=== PATIENT | female | born 1985 | race Caucasian/White ===

== ENCOUNTER → 2016-11-12 | Outpatient (CLI) | payer OTHER ==
[2016-11-12 10:28] LABS: BASO % 0.5 %; BASO ABS # 0.02 K/uL (0-0.2); COMPLETE YES; EOS % 1.4 %; HEMATOCRIT 39.9 % (37-47); LYMPH % 47.2 %; LYMPH ABS # 1.96 K/uL (1.2-3.4); MEAN CELL VOLUME 90.9 fL (80-100); MEAN CORPUSCULAR HEMOGLOBIN 31.4 pg (25-34); MEAN CORPUSCULAR HGB CONC 34.6 g/dl (32-36); MEAN PLATELET VOLUME 9.7 fL (7.4-10.4); MONO % 4.8 %; NEUT % 46.1 %; PLATELET COUNT 242 K/uL (130-400); RED BLOOD COUNT 4.39 M/uL (4.2-5.4); WHITE BLOOD COUNT 4.15 K/uL (4.8-10.8)
[2016-11-12 10:51] LABS: ALT/SGPT 21 U/L (12-78); BLOOD UREA NITROGEN 10 mg/dl (7-18); BUN/CREATININE RATIO 12.4 (10-20); CALCIUM 8.4 mg/dl (8.5-10.1); CARBON DIOXIDE 26 mmol/L (21-32); CHLORIDE 113 mmol/L (98-107); CHOLESTEROL 134 mg/dl (0-200); CREATININE 0.77 mg/dl (0.60-1.20); GLUCOSE 71 mg/dl (70-99); POTASSIUM 3.8 mmol/L (3.5-5.1); SODIUM 145 mmol/L (136-145)
[2016-11-12 10:57] LABS: ALB/GLOB RATIO 1.2 (0.9-2); ALKALINE PHOSPHATASE 48 U/L (45-117); AST/SGOT 11 U/L (15-37); C-REACTIVE PROTEIN 0.75 mg/dl (0-0.29); CHOLESTEROL/HDL RATIO 1.9; HDL CHOLESTEROL 70 mg/dl; LDL CHOLESTEROL CALCULATED 50 mg/dl; RHEUMATOID FACTOR < 10.0 U/mL (0-15); TRIGLYCERIDES 70 mg/dl (0-150); URIC ACID 3.6 mg/dl (2.6-7.2); VERY LOW DENSITY LIPOPROT CALC 14 mg/dl
== END | disposition home or self-care (01) ==
LOC: C.LAB 09:48
PROVIDERS: ATTEND Nurse Practitioner Adult Health
DX: Z00.00 Encounter for general adult medical examination without abnormal findings (principal); I73.00 Raynaud's syndrome without gangrene; M79.674 Pain in right toe(s)

== ENCOUNTER → 2016-12-10 | Outpatient (CLI) | payer OTHER | END | disposition home or self-care (01) | LOC: C.PAPS 14:30 | PROVIDERS: ATTEND Physician Assistant | DX: Z12.4 Encounter for screening for malignant neoplasm of cervix (principal) ==

== ENCOUNTER 2020-12-02 08:51 | Inpatient (IN) ==
[2020-12-02] MEDS ORDERED: NIFEdipine 10 MG CAP PO STA (09:30)
[2020-12-02] MEDS ORDERED: MAG SULFATE 4GM BOLUS FROM BAG IV ONE (09:30)
[2020-12-02] MEDS ORDERED: LACTATED RINGER'S 1,000 ML IV SCH ×2 (09:30→21:30)
[2020-12-02] MEDS ORDERED: LACTATED RINGER'S 1,000 ML IV PRN (09:32)
[2020-12-02] MEDS ORDERED: OXYTOCIN 30 UNITS/500 ML BAG IV PRN ×3 (09:32→19:03)
[2020-12-02 10:14] LABS: Alanine Aminotransferase 264 U/L (12-78); Albumin Level 2.7 gm/dl (3.4-5.0); Aspartate Aminotransferase 267 U/L (15-37); BUN Creatinine Ratio 12.8 (10-20); Blood Urea Nitrogen 7 mg/dl (7-18); Calcium 8.5 mg/dl (8.5-10.1); Carbon Dioxide 21 mmol/L (21-32); Chloride 110 mmol/L (98-107); Est GFR (Non-African American) 121.7 ml/min; Glucose 86 mg/dl (70-99); Potassium 4.2 mmol/L (3.5-5.1); Sodium 140 mmol/L (136-145)
[2020-12-02 10:17] LABS: Albumin Globulin Ratio 0.8 (0.9-2); Alkaline Phosphatase 182 U/L (45-117); Bilirubin,Total 0.8 mg/dl (0.2-1); Globulin 3.6 gm/dl (2.5-4.0); Total Protein 6.3 gm/dl (6.4-8.2)
[2020-12-02] MEDS: MAGNESIUM SULFATE / WTR 40 GM/1,000 ML BAG IV SCH (10:34)
[2020-12-02] MEDS ORDERED: LIDOCAINE 2% JELLY 5 ML TUBE ONE ×2 (10:50→17:11)
[2020-12-02 11:04] LABS: Hematocrit (blood only) 37.5 % (37-47); Hemoglobin 13.5 g/dL (12.0-16.0); Mean Corpuscular Hemoglobin 32.5 pg (25-34); Mean Corpuscular Volume 90.4 fL (80-100); Mean Platelet Volume 9.6 fL (7.4-10.4); Platelet Count 72 K/uL (130-400); RDW Coefficient of Variation 13.1 % (11.5-14.5); RDW Standard Deviation 42.9 fL (36.4-46.3); Red Blood Count 4.15 M/uL (4.2-5.4); White Blood Count 9.96 K/uL (4.8-10.8)
[2020-12-02 11:05] LABS: Basophils # (auto) 0.01 K/uL (0-0.2); Basophils % (auto) 0.1 %; Eosinophils # (auto) 0.01 K/uL (0-0.5); Eosinophils % (auto) 0.1 %; Immature Granulocytes # (auto) 0.06 K/uL (0.00-0.02); Immature Granulocytes % (auto) 0.6 %; Lymphocytes # (auto) 0.97 K/uL (1.2-3.4); Lymphocytes % (auto) 9.7 %; Monocytes # (auto) 0.52 K/uL (0.11-0.59); Monocytes % (auto) 5.2 %; Neutrophils # (auto) 8.39 K/uL (1.4-6.5); Neutrophils % (auto) 84.3 %; Platelet Estimate Decreased (Normal)
--- NOTE | 2020-12-02 11:27 | Progress Note ---
Date of Service December 02, 2020 Assessment & Plan Admission and Anticipated Discharge Date Admission Date: December 02, 2020 Subjective Pt is a 35yo G1 @36= weeks Preeclampsia FHR; CAT1 Ctx .minimal VE 1/50% /post EFW by diamond; 6-7lbs Admit discussed induction of labor with pt and spouse Both agree with plan Nifedipine for BP Magnesium sulphate started BMTX series started Antibx for GBS ordered Zuñiga Bulb placed with 30 cc saline placed with out difficulty Results & Data ([facility]) Vital Signs (Past 12 Hours) Vital Signs Pulse BP 12/02/20 11:17 112 H 139/101 H 12/02/20 11:07 107 H 135/93 12/02/20 10:47 114 H 136/87 12/02/20 10:37 125 H 126/87 12/02/20 10:27 130 H 134/86 12/02/20 10:17 102 H 163/102 H 12/02/20 10:08 93 H 170/115 H 12/02/20 09:57 100 H 161/106 H 12/02/20 09:53 96 H 162/105 H 12/02/20 09:27 100 H 159/111 H 12/02/20 09:17 91 H 168/113 H
[2020-12-02] MEDS ORDERED: PENICILLIN G POTASSIUM 6 MU in DEXTROSE 5% 250 ML IV ONE (11:45)
[2020-12-02] MEDS ORDERED: PENICILLIN G POTASSIUM 3 MU in DEXTROSE 5% 100 ML IV PRN (12:00)
[2020-12-02] MEDS: LABETALOL HCL 200 MG TAB PO SCH ×2 (13:07→21:10)
--- NOTE | 2020-12-02 13:49 | Anesthesiology Consultation ---
Date of Service December 02, 2020 Assessment & Plan Chart Review Chart Review: Acceptable Risk for Surgery and Patient NOT seen in Pre Admission Testing Consults Requested none ASA ASA3 Proposed Anesthesia Anesthesia Type: General History Allergies Allergy/AdvReac Type Severity Reaction Status Date / Time No Known Drug Allergies Allergy Verified 11/05/20 13:49 Medications Home Medications Medication Instructions Recorded Confirmed Last Taken prenat.vits,ave,oym-seta-rhkxp 1 tab PO DAILY 05/12/20 12/02/20 12/01/20 20:00 sertraline 100 mg tablet 200 mg PO DAILY #60 tab 07/24/20 12/02/20 11/30/20 20:00 bupropion HCl 100 mg tablet 150 mg PO BID #90 tab 11/06/20 12/02/20 11/30/20 20:00 Active Medications Generic Name Dose Route Start Last Admin Trade Name Freq PRN Reason Stop Dose Admin Magnesium Sulfate 40 gm in 1,000 mls @ 50 mls/hr 12/02/20 09:30 12/02/20 10:34 Magnesium Sulfate / Wtr IV 01/01/21 09:29 50 mls/hr .Q20H NORMA Administration Labetalol HCl 200 mg 12/02/20 12:40 12/02/20 13:07 Labetalol Hcl 200 Mg Tab PO 01/01/21 12:39 200 mg BID NORMA Administration Past Medical History Medical History Compulsive skin picking History of chicken pox 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 Leukopenia Raynaud phenomenon Exercise / Class Metabolic Activity III < 4 Walking/Shop/Light housework Past Family History Family History Mother COPD (chronic obstructive pulmonary disease) Father Afib Hypertension Brother Crohn's disease Denies family history of Colon cancer Ovarian cancer Prostate cancer Myocardial infarction Breast cancer Past Surgical History Surgical History No significant past surgical history Past Anesthesia History No Hx of Anesthesia Complications and No Family Hx of Anesthesia Complications History of PONV No Hx of PONV and No Hx of Motion Sickness Social History Smoking Status: Never smoker Hx Alcohol Use: Yes Alcohol type: wine Hx Substance Use: No Physical Exam Vital Signs Last Vital Signs Pulse 84 06/08/21 13:37 BP 142/103 H 12/02/20 13:37 Testing Laboratory Results 12/02/20 09:47 12/02/20 09:47
[2020-12-02] MEDS ORDERED: BUTORPHANOL TARTRATE 1 MG/ML VIAL IV PRN (14:27)
--- NOTE | 2020-12-02 14:35 | Progress Note ---
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 Plan since pt is processing well,in the presents of low platelets, we will continue to proceed and hope for vaginal delivery will continue to monitor labs Results & Data ([facility]) Vital Signs (Past 12 Hours) Vital Signs Temp Pulse Resp BP 12/02/20 14:07 88 132/87 12/02/20 13:58 90 128/89 12/02/20 13:47 90 140/96 12/02/20 13:37 84 142/103 H 12/02/20 13:16 37.0 C 20 12/02/20 12:58 99 H 172/108 H 12/02/20 12:47 97 H 149/112 H 12/02/20 12:37 90 163/107 H 12/02/20 12:28 98 H 166/110 H 12/02/20 12:17 93 H 161/105 H 12/02/20 12:08 93 H 156/103 H 12/02/20 11:57 100 H 139/88 12/02/20 11:48 101 H 139/89 12/02/20 11:38 105 H 157/108 H 12/02/20 11:27 111 H 156/98 H 12/02/20 11:17 112 H 139/101 H 12/02/20 11:07 107 H 135/93 12/02/20 10:47 114 H 136/87 12/02/20 10:37 125 H 126/87 12/02/20 10:27 130 H 134/86 12/02/20 10:17 102 H 163/102 H 12/02/20 10:08 93 H 170/115 H 12/02/20 09:57 100 H 161/106 H 12/02/20 09:53 96 H 162/105 H 12/02/20 09:27 100 H 159/111 H 12/02/20 09:17 91 H 168/113 H
[2020-12-02] MEDS: BUTORPHANOL TARTRATE 1 MG/ML VIAL ONE ×2 (14:38→18:23)
[2020-12-02 16:04] LABS: Hematocrit (blood only) 38.1 % (37-47); Hemoglobin 13.7 g/dL (12.0-16.0); Mean Corpuscular Hemoglobin 32.5 pg (25-34); Mean Corpuscular Volume 90.5 fL (80-100); RDW Coefficient of Variation 13.2 % (11.5-14.5); RDW Standard Deviation 43.1 fL (36.4-46.3); Red Blood Count 4.21 M/uL (4.2-5.4); White Blood Count 12.08 K/uL (4.8-10.8)
[2020-12-02 16:16] LABS: Mean Platelet Volume 10.2 fL (7.4-10.4); Platelet Count 76 K/uL (130-400)
[2020-12-02] MEDS ORDERED: LIDOCAINE 1% LOCAL 20 ML VIAL ONE (16:37)
[2020-12-02 16:41] LABS: Platelet Estimate Decreased (Normal)
[2020-12-02] MEDS ORDERED: CARBOPROST TROMETHAMINE 250 MCG/ML AMPUL ONE (16:43)
--- NOTE | 2020-12-02 17:03 | Delivery Summary ---
Vaginal Delivery Summary Date of Service December 02, 2020 Vaginal Delivery Summary and 1st Degree LAC Vaginal Delivery Summary: Pre-delivery diagnoses: 35yo @ 36 3/7, preeclampsia with severe features Post-delivery diagnoses: same Procedure: spontaneous vaginal delivery Surgeon: Dahlia Diaz DO Complications: none Findings: Viable male . Apgars: 8/9. Weight pending, please see nursery records. Estimated blood loss: 200ml Description of delivery: Patient's cryptographer was in the middle of a section of another patient, and this patient progressed quickly to complete cervical dilation and actively pushing. I was asked to step into the room for delivery by nursing staff in his absence. The patient progressed to complete without anesthesia. She then began to push. At the time I walked into the room, patient was and unable to overcome strong urge to push. She spontaneously vaginally delivered a viable from the cephalic presentation. The head delivered in KIARA position. The anterior shoulder delivered, followed by the posterior shoulder, followed by the body. No nuchal. The baby was placed on mother's abdomen and a spontaneous cry was heard. The cord was doubly clamped and cut. A segment was retained for cord gases. Cord blood was obtained. The placenta was delivered spontaneously intact with a 3- vessel cord. The uterus and vagina were swept of clots and debris. IV pitocin was given. The uterus became firm. Because of her low platelets, one dose of hemabate was given to further achieve hemostasis. The cervix, vagina, and perineum were inspected and a small first degree perineal laceration was noted. This was hemostatic and patient preferred to not have this repaired with suture. Excellent hemostasis was observed. The mother and baby are recovering in stable and good condition in the room. Sponge and instrument counts were correct x 2. Dahlia Diaz DO [facility] [place] Vaginal Delivery Charge Delivery Type Details: and 1st Degree LAC
[2020-12-02 18:29] LABS: Hematocrit (blood only) 36.5 % (37-47); Hemoglobin 13.1 g/dL (12.0-16.0); Mean Corpuscular Hemoglobin 32.5 pg (25-34); Mean Corpuscular Hgb Conc 35.9 g/dL (32-36); Mean Corpuscular Volume 90.6 fL (80-100); RDW Coefficient of Variation 13.3 % (11.5-14.5); RDW Standard Deviation 43.3 fL (36.4-46.3); Red Blood Count 4.03 M/uL (4.2-5.4); White Blood Count 10.58 K/uL (4.8-10.8)
[2020-12-02 18:41] LABS: Mean Platelet Volume 10.2 fL (7.4-10.4); Platelet Count 58 K/uL (130-400)
[2020-12-02 18:47] LABS: Albumin Level 2.8 gm/dl (3.4-5.0); BUN Creatinine Ratio 17.2 (10-20); Calcium 7.4 mg/dl (8.5-10.1); Creatinine Clr Calc Pharmacy 131.9 ml/min; Est GFR (African American) 141.8 ml/min; Est GFR (Non-African American) 122.4 ml/min; Potassium 3.8 mmol/L (3.5-5.1)
[2020-12-02 18:50] LABS: Albumin Globulin Ratio 0.8 (0.9-2); Bilirubin,Total 0.8 mg/dl (0.2-1); Globulin 3.6 gm/dl (2.5-4.0); Total Protein 6.4 gm/dl (6.4-8.2)
[2020-12-02] MEDS ORDERED: HYDROCORTISONE ACETATE 25 MG SUPP PR PRN (19:03)
[2020-12-02] MEDS ORDERED: bisacodyL 10 MG SUPP PR PRN (19:03)
[2020-12-02] MEDS ORDERED: BENZOCAINE 20% AER SPR 82.5 GM CAN EXT PRN (19:03)
[2020-12-02] MEDS ORDERED: SUPERCREAM 0.870% 15 GM JAR EXT PRN (19:03)
[2020-12-02] MEDS ORDERED: oxyCODONE/ACETAMINOPHEN 5mg/325mg TAB PO PRN (19:03)
[2020-12-02] MEDS ORDERED: ACETAMINOPHEN 325 MG TAB PO PRN (19:03)
[2020-12-02] MEDS ORDERED: IBUPROFEN 600 MG TAB PO PRN (19:03)
[2020-12-02] MEDS ORDERED: DIPHTHERIA/TETANUS/PERTUSSIS 0.5 ML SYR/VIAL IM ONE (19:03)
[2020-12-02] MEDS ORDERED: CARBOPROST TROMETHAMINE 250 MCG/ML AMPUL IM ONE (19:03)
[2020-12-02 19:19] LABS: Cord Venous Blood PCO2 49 mmHg (30.4-57.2); Cord Venous Blood PO2 29 mmHg (14.1-43.3)
[2020-12-02 19:20] LABS: Base Excess Cord Venous Blood -3.4 mEq/L (-7.7-1.9); Cord Venous Blood HCO3 24 mmol/L (18.4-26.8)
[2020-12-02] MEDS: DOCUSATE SODIUM 100 MG CAP PO SCH (21:08)
[2020-12-02] MEDS: buPROPion HCl 75 MG TABLET PO SCH ×2 (21:10→21:28)
[2020-12-03 01:33] LABS: Hematocrit (blood only) 35.3 % (37-47); Hemoglobin 12.4 g/dL (12.0-16.0); Mean Corpuscular Hemoglobin 31.6 pg (25-34); Mean Corpuscular Volume 89.8 fL (80-100); RDW Coefficient of Variation 13.4 % (11.5-14.5); RDW Standard Deviation 43.3 fL (36.4-46.3); Red Blood Count 3.93 M/uL (4.2-5.4)
[2020-12-03 02:06] LABS: Mean Corpuscular Hgb Conc 35.1 g/dL (32-36); Mean Platelet Volume 10.1 fL (7.4-10.4); Platelet Count 73 K/uL (130-400)
[2020-12-03] MEDS: MAGNESIUM SULFATE / WTR 40 GM/1,000 ML BAG IV SCH (04:02)
[2020-12-03 06:20] LABS: Hematocrit (blood only) 34.5 % (37-47); Hemoglobin 12.3 g/dL (12.0-16.0); Mean Corpuscular Hemoglobin 31.9 pg (25-34); Mean Corpuscular Hgb Conc 35.7 g/dL (32-36); Mean Corpuscular Volume 89.6 fL (80-100); RDW Coefficient of Variation 13.4 % (11.5-14.5); RDW Standard Deviation 43.2 fL (36.4-46.3); Red Blood Count 3.85 M/uL (4.2-5.4); White Blood Count 12.16 K/uL (4.8-10.8)
[2020-12-03 06:24] LABS: Mean Platelet Volume 10.5 fL (7.4-10.4); Platelet Count 75 K/uL (130-400)
[2020-12-03] MEDS: LABETALOL HCL 200 MG TAB PO SCH ×2 (09:00→20:50)
[2020-12-03] MEDS ORDERED: SERTRALINE HCL 100 MG TABLET PO SCH ×2 (09:00→21:00)
[2020-12-03] MEDS: DOCUSATE SODIUM 100 MG CAP PO SCH ×2 (09:04→20:49)
[2020-12-03] MEDS: PRENATAL VITAMIN 1 TAB PO SCH (09:04)
[2020-12-03] MEDS: buPROPion HCl 75 MG TABLET PO SCH ×2 (09:05→20:50)
--- NOTE | 2020-12-03 09:23 | Obstetrical Progress Note ---
Date of Service December 03, 2020 Subjective Voiding: bashir catheter in place Passing Gas:: Yes Diet Tolerance:: regular diet Lochia:: Small Feeding Type:: breast feeding no headaches or blurred vision or visual changes no edema neg Supa's Urine output good Will hold Labetalol due to BP 130/88 plan repeat LFT's and Mag level Will d/c Mag at 24 hours if stable Results & Data ([facility]) Vital Signs (Past 12 Hours) Vital Signs Temp Pulse Resp BP Pulse Ox 12/03/20 09:17 92 H 95 12/03/20 09:12 94 H 97 12/03/20 09:07 93 H 95 12/03/20 09:02 94 H 94 12/03/20 09:00 90 130/88 12/03/20 08:57 94 H 95 12/03/20 08:52 92 H 95 12/03/20 08:47 89 95 12/03/20 08:42 89 95 12/03/20 08:37 93 H 96 12/03/20 08:32 88 96 12/03/20 08:30 18 12/03/20 08:27 90 95 12/03/20 08:22 92 H 95 12/03/20 08:17 93 H 95 12/03/20 08:12 91 H 95 12/03/20 08:07 92 H 97 12/03/20 08:02 90 95 12/03/20 08:00 90 127/86 12/03/20 07:57 90 95 12/03/20 07:52 88 95 12/03/20 07:47 92 H 95 12/03/20 07:42 88 95 12/03/20 07:37 88 94 12/03/20 07:32 88 95 12/03/20 07:30 36.7 C 18 12/03/20 07:27 90 93 12/03/20 07:22 87 96 12/03/20 07:17 89 96 12/03/20 07:12 90 97 12/03/20 07:07 82 96 12/03/20 07:02 83 97 12/03/20 07:00 81 18 139/95 12/03/20 06:57 84 97 12/03/20 06:52 81 97 12/03/20 06:47 86 97 12/03/20 06:42 84 97 12/03/20 06:37 85 97 12/03/20 06:32 84 98 12/03/20 06:27 82 97 12/03/20 06:22 81 96 12/03/20 06:17 85 97 12/03/20 06:12 83 96 12/03/20 06:07 81 97 12/03/20 06:02 81 96 12/03/20 06:00 83 18 138/95 12/03/20 05:57 86 97 12/03/20 05:52 85 97 12/03/20 05:47 91 H 95 12/03/20 05:42 90 95 12/03/20 05:37 92 H 95 12/03/20 05:32 91 H 96 12/03/20 05:27 89 95 12/03/20 05:22 89 95 12/03/20 05:17 90 95 12/03/20 05:12 91 H 95 12/03/20 05:07 89 95 12/03/20 05:02 90 95 12/03/20 05:00 89 16 129/87 12/03/20 04:57 89 95 12/03/20 04:52 90 96 12/03/20 04:47 89 95 12/03/20 04:42 89 96 12/03/20 04:37 88 96 12/03/20 04:32 88 94 12/03/20 04:27 87 95 12/03/20 04:22 85 95 12/03/20 04:17 84 96 12/03/20 04:12 84 96 12/03/20 04:07 90 98 12/03/20 04:02 88 96 12/03/20 04:00 36.9 C 88 16 122/90 12/03/20 03:57 94 H 95 12/03/20 03:52 91 H 95 12/03/20 03:47 91 H 95 12/03/20 03:42 90 95 12/03/20 03:37 90 95 12/03/20 03:32 91 H 95 12/03/20 03:27 90 96 12/03/20 03:22 90 96 12/03/20 03:20 16 12/03/20 03:17 90 96 12/03/20 03:12 89 96 12/03/20 03:07 88 96 12/03/20 03:02 86 96 12/03/20 03:00 85 127/89 12/03/20 02:57 86 96 12/03/20 02:52 86 96 12/03/20 02:47 82 97 12/03/20 02:42 83 96 12/03/20 02:37 91 H 97 12/03/20 02:32 96 H 96 12/03/20 02:30 18 12/03/20 02:27 95 H 96 12/03/20 02:22 95 H 94 12/03/20 02:17 96 H 95 12/03/20 02:12 96 H 96 12/03/20 02:07 95 H 97 12/03/20 02:02 97 H 97 12/03/20 01:58 91 H 138/89 12/03/20 01:57 90 97 12/03/20 01:52 89 96 12/03/20 01:47 88 96 12/03/20 01:42 87 96 12/03/20 01:37 86 96 12/03/20 01:32 84 97 12/03/20 01:27 83 97 12/03/20 01:22 83 97 12/03/20 01:17 82 98 12/03/20 01:15 18 12/03/20 01:12 86 99 12/03/20 01:07 90 97 12/03/20 01:02 86 97 12/03/20 01:01 85 133/86 12/03/20 00:57 86 97 12/03/20 00:52 86 96 12/03/20 00:47 88 96 12/03/20 00:42 87 96 12/03/20 00:37 88 96 12/03/20 00:32 86 96 12/03/20 00:27 86 96 12/03/20 00:22 86 96 12/03/20 00:17 87 95 12/03/20 00:15 16 12/03/20 00:12 86 97 12/03/20 00:07 85 96 12/03/20 00:02 87 96 12/03/20 00:01 85 133/84 12/02/20 23:57 86 96 12/02/20 23:52 84 96 12/02/20 23:47 84 96 12/02/20 23:42 84 97 12/02/20 23:37 83 97 06/08/21 23:32 84 97 12/02/20 23:27 88 97 12/02/20 23:22 91 H 95 12/02/20 23:17 85 98 12/02/20 23:15 36.9 C 18 12/02/20 23:12 86 98 12/02/20 23:07 79 98 12/02/20 23:02 86 97 12/02/20 23:01 83 141/93 H 12/02/20 22:57 82 96 12/02/20 22:52 87 96 12/02/20 22:47 87 96 12/02/20 22:42 90 96 12/02/20 22:37 92 H 99 12/02/20 22:32 83 98 12/02/20 22:30 20 12/02/20 22:27 81 97 12/02/20 22:22 83 97 12/02/20 22:17 84 96 12/02/20 22:12 83 95 12/02/20 22:09 85 145/94 H 12/02/20 22:07 83 98 12/02/20 22:02 80 98 12/02/20 22:01 86 173/103 H 12/02/20 21:57 86 97 12/02/20 21:52 82 97 12/02/20 21:47 85 100 12/02/20 21:42 86 98 12/02/20 21:37 75 98 12/02/20 21:32 83 95 12/02/20 21:27 81 98 12/02/20 21:22 83 98 Laboratory Results all Laboratory Results - last 72 hr 12/02/20 12/02/20 12/02/20 09:47 09:47 13:15 WBC 9.96 RBC 4.15 L Hgb 13.5 Hct 37.5 MCV 90.4 MCH 32.5 MCHC 36.0 RDW Std Deviation 42.9 RDW Coeff of Keyla 13.1 Plt Count 72 L MPV 9.6 Immature Gran % (Auto) 0.6 Neut % (Auto) 84.3 Lymph % (Auto) 9.7 [place] % (Auto) 5.2 Eos % (Auto) 0.1 Baso % (Auto) 0.1 Neut # (Auto) 8.39 H Lymph # (Auto) 0.97 L [place] # (Auto) 0.52 Eos # (Auto) 0.01 Baso # (Auto) 0.01 Immature Gran # (Auto) 0.06 H Platelet Estimate Decreased L Cord VBG pH Cord VBG pCO2 Cord VBG pO2 Cord VBG HCO3 Cord VBG Base Excess Cord VBG O2 Sat Blood Gas Comments Sodium 140 Potassium 4.2 Chloride 110 H Carbon Dioxide 21 Anion Gap 9.0 BUN 7 Creatinine 0.56 L Est Cr Clr Drug Dosing Not Reportable Est GFR ( Amer) 141.0 Est GFR (Non-Af Amer) 121.7 BUN/Creatinine Ratio 12.8 Glucose 86 Calcium 8.5 Total Bilirubin 0.8 AST 267 H ALT 264 H Alkaline Phosphatase 182 H Total Protein 6.3 L Albumin 2.7 L Globulin 3.6 Albumin/Globulin Ratio 0.8 L COVID-19 Eval Order [facility] SARS-CoV-2, RNA, NAAT 12/02/20 12/02/20 12/02/20 13:15 15:53 16:29 WBC 12.08 H RBC 4.21 Hgb 13.7 Hct 38.1 MCV 90.5 MCH 32.5 MCHC 36.0 RDW Std Deviation 43.1 RDW Coeff of Keyla 13.2 Plt Count 76 L MPV 10.2 Immature Gran % (Auto) Neut % (Auto) Lymph % (Auto) [place] % (Auto) Eos % (Auto) Baso % (Auto) Neut # (Auto) Lymph # (Auto) [place] # (Auto) Eos # (Auto) Baso # (Auto) Immature Gran # (Auto) Platelet Estimate Decreased L Cord VBG pH 7.30 Cord VBG pCO2 49 Cord VBG pO2 29 Cord VBG HCO3 24 Cord VBG Base Excess -3.4 Cord VBG O2 Sat 64.0 Blood Gas Comments DUNLAP Sodium Potassium Chloride Carbon Dioxide Anion Gap BUN Creatinine Est Cr Clr Drug Dosing Est GFR ( Amer) Est GFR (Non-Af Amer) BUN/Creatinine Ratio Glucose Calcium Total Bilirubin AST ALT Alkaline Phosphatase Total Protein Albumin Globulin Albumin/Globulin Ratio COVID-19 Eval Order SARS-CoV-2, RNA, NAAT NEGATIVE 12/02/20 12/02/20 12/03/20 18:10 18:10 01:10 WBC 10.58 13.30 H RBC 4.03 L 3.93 L Hgb 13.1 12.4 Hct 36.5 L 35.3 L MCV 90.6 89.8 MCH 32.5 31.6 MCHC 35.9 35.1 RDW Std Deviation 43.3 43.3 RDW Coeff of Keyla 13.3 13.4 Plt Count 58 L 73 L MPV 10.2 10.1 Immature Gran % (Auto) Neut % (Auto) Lymph % (Auto) [place] % (Auto) Eos % (Auto) Baso % (Auto) Neut # (Auto) Lymph # (Auto) [place] # (Auto) Eos # (Auto) Baso # (Auto) Immature Gran # (Auto) Platelet Estimate Cord VBG pH Cord VBG pCO2 Cord VBG pO2 Cord VBG HCO3 Cord VBG Base Excess Cord VBG O2 Sat Blood Gas Comments Sodium 136 Potassium 3.8 Chloride 107 Carbon Dioxide 19 L Anion Gap 10.0 BUN 9 Creatinine 0.55 L Est Cr Clr Drug Dosing 131.9 Est GFR ( Amer) 141.8 Est GFR (Non-Af Amer) 122.4 BUN/Creatinine Ratio 17.2 Glucose 101 H Calcium 7.4 L Total Bilirubin 0.8 AST 227 H ALT 245 H Alkaline Phosphatase 181 H Total Protein 6.4 Albumin 2.8 L Globulin 3.6 Albumin/Globulin Ratio 0.8 L COVID-19 Eval Order SARS-CoV-2, RNA, NAAT 12/03/20 05:53 WBC 12.16 H RBC 3.85 L Hgb 12.3 Hct 34.5 L MCV 89.6 MCH 31.9 MCHC 35.7 RDW Std Deviation 43.2 RDW Coeff of Keyla 13.4 Plt Count 75 L MPV 10.5 H Immature Gran % (Auto) Neut % (Auto) Lymph % (Auto) [place] % (Auto) Eos % (Auto) Baso % (Auto) Neut # (Auto) Lymph # (Auto) [place] # (Auto) Eos # (Auto) Baso # (Auto) Immature Gran # (Auto) Platelet Estimate Cord VBG pH Cord VBG pCO2 Cord VBG pO2 Cord VBG HCO3 Cord VBG Base Excess Cord VBG O2 Sat Blood Gas Comments Sodium Potassium Chloride Carbon Dioxide Anion Gap BUN Creatinine Est Cr Clr Drug Dosing Est GFR ( Amer) Est GFR (Non-Af Amer) BUN/Creatinine Ratio Glucose Calcium Total Bilirubin AST ALT Alkaline Phosphatase Total Protein Albumin Globulin Albumin/Globulin Ratio COVID-19 Eval Order SARS-CoV-2, RNA, NAAT
[2020-12-03 10:15] LABS: Albumin Level 2.7 gm/dl (3.4-5.0); Bilirubin Direct 0.2 mg/dl (0-0.2); Bilirubin,Total 0.5 mg/dl (0.2-1); Magnesium Therapeutic L&D Only 7.9 mg/dL (4.0-8.0); Total Protein 6.2 gm/dl (6.4-8.2)
[2020-12-03] MEDS ORDERED: Nursing to Pharmacy Communication SCH (12:15)
[2020-12-03] MEDS ORDERED: bisacodyL 5 MG TABEC PO SCH (20:00)
[2020-12-04 05:39] LABS: Hematocrit (blood only) 32.2 % (37-47); Hemoglobin 11.1 g/dL (12.0-16.0); Mean Corpuscular Hemoglobin 31.7 pg (25-34); Mean Corpuscular Hgb Conc 34.5 g/dL (32-36); RDW Coefficient of Variation 13.7 % (11.5-14.5); White Blood Count 10.13 K/uL (4.8-10.8)
[2020-12-04 05:57] LABS: Mean Platelet Volume 9.9 fL (7.4-10.4); Platelet Count 93 K/uL (130-400)
[2020-12-04 06:05] LABS: Albumin Level 2.4 gm/dl (3.4-5.0); Bilirubin Direct 0.1 mg/dl (0-0.2); Bilirubin,Total 0.3 mg/dl (0.2-1); Total Protein 5.8 gm/dl (6.4-8.2)
[2020-12-04] MEDS: PRENATAL VITAMIN 1 TAB PO SCH (08:06)
[2020-12-04] MEDS: DOCUSATE SODIUM 100 MG CAP PO SCH (08:07)
[2020-12-04] MEDS: buPROPion HCl 75 MG TABLET PO SCH (08:07)
[2020-12-04] MEDS: LABETALOL HCL 200 MG TAB PO SCH (08:10)
--- NOTE | 2020-12-04 09:31 | Obstetrical Progress Note ---
Date of Service December 04, 2020 Subjective Ambulation: ambulating normally Voiding: no voiding problems Diet Tolerance:: regular diet Lochia:: Small Feeding Type:: breast feeding doing well labs all improved no headaches or visual changes no sswelling will plan for d/c later if baby OK to be discharged Results & Data ([facility]) Vital Signs (Past 12 Hours) Vital Signs Temp Pulse Resp BP Pulse Ox 12/04/20 08:09 69 101/65 12/04/20 08:01 36.8 C 79 18 105/70 96 12/04/20 03:20 36.9 C 74 16 97/63 L 98 12/04/20 00:03 36.8 C 86 18 98/58 L 98 12/03/20 23:21 37.1 C 87 16 100/65 96 Laboratory Results Laboratory Results - last 72 hr 12/02/20 12/02/20 12/02/20 09:47 09:47 13:15 WBC 9.96 RBC 4.15 L Hgb 13.5 Hct 37.5 MCV 90.4 MCH 32.5 MCHC 36.0 RDW Std Deviation 42.9 RDW Coeff of Keyla 13.1 Plt Count 72 L MPV 9.6 Immature Gran % (Auto) 0.6 Neut % (Auto) 84.3 Lymph % (Auto) 9.7 [place] % (Auto) 5.2 Eos % (Auto) 0.1 Baso % (Auto) 0.1 Neut # (Auto) 8.39 H Lymph # (Auto) 0.97 L [place] # (Auto) 0.52 Eos # (Auto) 0.01 Baso # (Auto) 0.01 Immature Gran # (Auto) 0.06 H Platelet Estimate Decreased L Cord VBG pH Cord VBG pCO2 Cord VBG pO2 Cord VBG HCO3 Cord VBG Base Excess Cord VBG O2 Sat Blood Gas Comments Sodium 140 Potassium 4.2 Chloride 110 H Carbon Dioxide 21 Anion Gap 9.0 BUN 7 Creatinine 0.56 L Est Cr Clr Drug Dosing Not Reportable Est GFR ( Amer) 141.0 Est GFR (Non-Af Amer) 121.7 BUN/Creatinine Ratio 12.8 Glucose 86 Calcium 8.5 Magnesium (Sulf Ther) Total Bilirubin 0.8 Direct Bilirubin AST 267 H ALT 264 H Alkaline Phosphatase 182 H Total Protein 6.3 L Albumin 2.7 L Globulin 3.6 Albumin/Globulin Ratio 0.8 L COVID-19 [facility], RNA, NAAT Blood Type Antibody Screen Screen 12/02/20 12/02/20 12/02/20 13:15 15:53 16:29 WBC 12.08 H RBC 4.21 Hgb 13.7 Hct 38.1 MCV 90.5 MCH 32.5 MCHC 36.0 RDW Std Deviation 43.1 RDW Coeff of Keyla 13.2 Plt Count 76 L MPV 10.2 Immature Gran % (Auto) Neut % (Auto) Lymph % (Auto) [place] % (Auto) Eos % (Auto) Baso % (Auto) Neut # (Auto) Lymph # (Auto) [place] # (Auto) Eos # (Auto) Baso # (Auto) Immature Gran # (Auto) Platelet Estimate Decreased L Cord VBG pH 7.30 Cord VBG pCO2 49 Cord VBG pO2 29 Cord VBG HCO3 24 Cord VBG Base Excess -3.4 Cord VBG O2 Sat 64.0 Blood Gas Comments DUNLAP Sodium Potassium Chloride Carbon Dioxide Anion Gap BUN Creatinine Est Cr Clr Drug Dosing Est GFR ( Amer) Est GFR (Non-Af Amer) BUN/Creatinine Ratio Glucose Calcium Magnesium (Sulf Ther) Total Bilirubin Direct Bilirubin AST ALT Alkaline Phosphatase Total Protein Albumin Globulin Albumin/Globulin Ratio COVID-19 Eval Order SARS-CoV-2, RNA, NAAT NEGATIVE Blood Type Antibody Screen Screen 12/02/20 12/02/20 12/03/20 18:10 18:10 01:10 WBC 10.58 13.30 H RBC 4.03 L 3.93 L Hgb 13.1 12.4 Hct 36.5 L 35.3 L MCV 90.6 89.8 MCH 32.5 31.6 MCHC 35.9 35.1 RDW Std Deviation 43.3 43.3 RDW Coeff of Keyla 13.3 13.4 Plt Count 58 L 73 L MPV 10.2 10.1 Immature Gran % (Auto) Neut % (Auto) Lymph % (Auto) [place] % (Auto) Eos % (Auto) Baso % (Auto) Neut # (Auto) Lymph # (Auto) [place] # (Auto) Eos # (Auto) Baso # (Auto) Immature Gran # (Auto) Platelet Estimate Cord VBG pH Cord VBG pCO2 Cord VBG pO2 Cord VBG HCO3 Cord VBG Base Excess Cord VBG O2 Sat Blood Gas Comments Sodium 136 Potassium 3.8 Chloride 107 Carbon Dioxide 19 L Anion Gap 10.0 BUN 9 Creatinine 0.55 L Est Cr Clr Drug Dosing 131.9 Est GFR ( Amer) 141.8 Est GFR (Non-Af Amer) 122.4 BUN/Creatinine Ratio 17.2 Glucose 101 H Calcium 7.4 L Magnesium (Sulf Ther) Total Bilirubin 0.8 Direct Bilirubin AST 227 H ALT 245 H Alkaline Phosphatase 181 H Total Protein 6.4 Albumin 2.8 L Globulin 3.6 Albumin/Globulin Ratio 0.8 L COVID-19 Eval Order SARS-CoV-2, RNA, NAAT Blood Type Antibody Screen Screen 12/03/20 12/03/20 12/03/20 05:53 05:53 09:25 WBC 12.16 H RBC 3.85 L Hgb 12.3 Hct 34.5 L MCV 89.6 MCH 31.9 MCHC 35.7 RDW Std Deviation 43.2 RDW Coeff of Keyla 13.4 Plt Count 75 L MPV 10.5 H Immature Gran % (Auto) Neut % (Auto) Lymph % (Auto) [place] % (Auto) Eos % (Auto) Baso % (Auto) Neut # (Auto) Lymph # (Auto) [place] # (Auto) Eos # (Auto) Baso # (Auto) Immature Gran # (Auto) Platelet Estimate Cord VBG pH Cord VBG pCO2 Cord VBG pO2 Cord VBG HCO3 Cord VBG Base Excess Cord VBG O2 Sat Blood Gas Comments Sodium Potassium Chloride Carbon Dioxide Anion Gap BUN Creatinine Est Cr Clr Drug Dosing Est GFR ( Amer) Est GFR (Non-Af Amer) BUN/Creatinine Ratio Glucose Calcium Magnesium (Sulf Ther) 7.9 Total Bilirubin 0.5 Direct Bilirubin 0.2 AST 138 H ALT 189 H Alkaline Phosphatase 162 H Total Protein 6.2 L Albumin 2.7 L Globulin Albumin/Globulin Ratio COVID-19 Eval Order SARS-CoV-2, RNA, NAAT Blood Type A Negative Antibody Screen NEGATIVE Screen Negative 12/04/20 12/04/20 05:24 05:24 WBC 10.13 RBC 3.50 L Hgb 11.1 L Hct 32.2 L MCV 92.0 MCH 31.7 MCHC 34.5 RDW Std Deviation 45.0 RDW Coeff of Keyla 13.7 Plt Count 93 L MPV 9.9 Immature Gran % (Auto) Neut % (Auto) Lymph % (Auto) [place] % (Auto) Eos % (Auto) Baso % (Auto) Neut # (Auto) Lymph # (Auto) [place] # (Auto) Eos # (Auto) Baso # (Auto) Immature Gran # (Auto) Platelet Estimate Cord VBG pH Cord VBG pCO2 Cord VBG pO2 Cord VBG HCO3 Cord VBG Base Excess Cord VBG O2 Sat Blood Gas Comments Sodium Potassium Chloride Carbon Dioxide Anion Gap BUN Creatinine Est Cr Clr Drug Dosing Est GFR ( Amer) Est GFR (Non-Af Amer) BUN/Creatinine Ratio Glucose Calcium Magnesium (Sulf Ther) Total Bilirubin 0.3 Direct Bilirubin 0.1 AST 68 H ALT 129 H Alkaline Phosphatase 139 H Total Protein 5.8 L Albumin 2.4 L Globulin Albumin/Globulin Ratio COVID-19 Eval Order SARS-CoV-2, RNA, NAAT Blood Type Antibody Screen Screen
== END 2020-12-04 17:14 | disposition home or self-care (01) | DRG 806 ==
LOC: OPB 08:51 → 4S1 08:54 → 4S2 12-03 12:26